=== PATIENT | male | born 1970 | race Caucasian/White ===

== ENCOUNTER 2018-11-30 08:05 | Day surgery (SDC) | payer OTHER ==
[~2018-11-30] VITALS: Ht 182.9 cm; Wt 87.1 kg
[2018-11-30] MEDS ORDERED: LR 1,000 ML IV SCH (10:46)
[2018-11-30] MEDS ORDERED: HYDROmorphone 1 MG INJ. 1 MG/ML AMPUL IVP PRN (11:00)
[2018-11-30] MEDS ORDERED: MEPERIDINE HCL/PF 25 MG/ML DISP.SYRIN IVP PRN (11:00)
[2018-11-30] MEDS ORDERED: HYDROmorphone 2 MG/ML VIAL IVP PRN ×2 (11:00)
[2018-11-30] MEDS ORDERED: OXYMETAZOLINE HCL 0.05% NASAL SPRAY NS ONE (13:55)
[2018-11-30] MEDS ORDERED: ONDANSETRON HCL 4 MG/2 ML VIAL ONE (13:55)
[2018-11-30] MEDS ORDERED: ROCURONIUM BROMIDE 10 MG/ML (ZEMURON) ONE (13:55)
[2018-11-30] MEDS ORDERED: fentaNYL CITRATE/PF 100 MCG/2 ML AMP IVP ONE (13:55)
[2018-11-30] MEDS ORDERED: MUPIROCIN 2% TOPICAL OINTMENT 22 GM ONE (13:55)
[2018-11-30] MEDS ORDERED: MIDAZOLAM HCL 5 MG/ML VIAL (VERSED) IV ONE (13:55)
[2018-11-30] MEDS ORDERED: NS 1000 ML IV.SOLN IV ONE (13:55)
[2018-11-30] MEDS ORDERED: NS IRRIG SOLN 1000 ML IR ONE (13:55)
[2018-11-30] MEDS ORDERED: LR 1,000 ML IV.SOLN IV ONE (13:55)
[2018-11-30] MEDS ORDERED: METOCLOPRAMIDE HCL 10 MG/2 ML VIAL ONE (13:55)
[2018-11-30] MEDS ORDERED: PROPOFOL 200MG/ 20ML VIAL (DIPRIVAN) IV ONE (13:55)
[2018-11-30] MEDS ORDERED: fentaNYL CITRATE 250 MCG/5 ML AMP ONE (13:55)
[2018-11-30] MEDS ORDERED: EPINEPHrine 1 MG/ML AMP ONE (13:55)
[2018-11-30] MEDS ORDERED: DEXAMETHASONE SOD PHOSPHATE 4 MG/ML VIAL ONE (13:55)
[2018-11-30] MEDS ORDERED: SEVOFLURANE 15 MIN GAS INH ONE (13:55)
[2018-11-30 16:03] VITALS: BP_SYST 122
== END 2018-11-30 16:40 | disposition home or self-care (01) ==
LOC: SDS 08:05 → SMU 08:06 → SDS 16:40
PROVIDERS: ATTEND Otolaryngology
DX: J34.89 Other specified disorders of nose and nasal sinuses (principal); J32.2 Chronic ethmoidal sinusitis; J33.8 Other polyp of sinus; J34.2 Deviated nasal septum; J30.1 Allergic rhinitis due to pollen; G47.63 Sleep related bruxism; J34.0 Abscess, furuncle and carbuncle of nose; D38.5 Neoplasm of uncertain behavior of other respiratory organs; F17.200 Nicotine dependence, unspecified, uncomplicated; Z98.890 Other specified postprocedural states
CPT/HCPCS: 30140; 30520; 31253; 31267; 31297; 88305; C1726; J0171; J1100; J2250; J2405; J2704; J2765; J3010 ×2; J7030; J7120